=== PATIENT | female | born 1955 | race Caucasian/White ===

== ENCOUNTER → 2017-06-16 | Outpatient (CLI) | payer MEDICARE ==
[~2017-06-16] MED LIST: AGM875T PO; ALPR.25T PO; AZTH250C PO; BUTA-234 PO; CEPH500C PO; CITA10TA70 PO; CITA20TA4 PO; CRS350T PO; FURO40TA4 PO; HYDR-3720 PO; HYDR480S10 GT; NAPR-243 PO; POTA10CA16 PO; ROPI0.5T; SULF1TAB38 PO; TRM50T PO
--- NOTE | 2017-06-17 07:57 | Diagnostic Imaging Report ---
Digital mammogram bilateral screening with tomosynthesis. There are no prior studies available for comparison. There are scattered fibroglandular densities in both breasts which could obscure a lesion. There is no primary or secondary sign of malignancy noted. The tomosynthesis views also fail to show any evidence for malignancy. IMPRESSION: 1. There is no evidence for malignancy. 2. The patient should have her annual bilateral screening mammogram on schedule in June of 2018. ACR BI-RADS Category 1: Negative. Result letter will be mailed to the patient. Note: At least 10% of breast cancer is not imaged by mammography. Dictated by: Dictated on workstation # [id number]
== END ==
LOC: RAD 10:46
PROVIDERS: ATTEND Internal Medicine
DX: Z12.31 Encounter for screening mammogram for malignant neoplasm of breast (principal)
CPT/HCPCS: 77067

== ENCOUNTER 2017-11-28 03:00 | Emergency (ER) | payer MEDICARE ==
[~2017-11-28] VITALS: Ht 162.6 cm; Wt 95.3 kg
[2017-11-28] MEDS ORDERED: LACTATED RINGERS 1,000 ML IV ONE (03:43)
[2017-11-28] MEDS ORDERED: ONDANSETRON 4 MG/2 ML (SDV) Z0FRAN IVP ONE (03:45)
[2017-11-28] MEDS ORDERED: fentaNYL INJECTION 100 MCG/2 ML AMP IVP ONE (03:45)
--- NOTE | 2017-11-28 03:49 | ED GI ---
General Chief Complaint: Abdominal/GI Problems Stated Complaint: ABD PAIN Nursing Triage Note: PT REPORTS MIDLINE ABD PAIN SINCE 1900. SHE ALSO C/O NAUSEA WITHOUT VOMITING. SHE DENIES FEVER. Sepsis Screen: No Definite Risk Source of Information: Patient Exam Limitations: No Limitations History of Present Illness Date Seen by Provider: Nov 28, 2017 Time Seen by Provider: 03:39 Initial Comments Patient presents to ER by private conveyance with chief complaint that less than one day now she's been feeling nauseated after dinner and threw up. She Dry up so she decided to come in. After throwing up she was started having epigastric pain. She's having no diarrhea her last bowel movement was earlier today and normal, formed without straining. She has no history of abdominal problems she has had a hysterectomy in the past. She says her [id number] about a day ago had similar symptoms and she is doing better now. Patient does not have any other medical history, diabetes, cardiac history etc. She does not smoke or drink. She says her pain is a little better right now but she did vomit times one since she's been in the ER and there is no blood in the vomitus. She has no cough, body aches, fevers, chills. Allergies and Home Medications Allergies Coded Allergies: Codeine (Verified Allergy, 11/04/11) Uncoded Allergies: ADHESIVES (Allergy, 10/10/10) Home Medications Amoxicillin/Clavulanate K 1 Tab Tablet, 1 TAB PO BID for 7 Days, Ref 0 Prescribed by: SYLVAIN COBB on 08/08/12 8777 Butalb/Acetaminophen/Caffeine 1 Each Tablet, 1 EACH PO Q4HR PRN, (Reported) Citalopram Hydrobromide 10 Mg Tablet, 4 EACH PO DAILY, (Reported) Hydrocodone Bit/Acetaminophen 1 Ea Tab, 1 TAB PO Q4, Ref 0 (Reported) Review of Systems Constitutional: No chills, No diaphoresis, No fever, No malaise EENTM: No Eye Pain, No Ear Pain Respiratory: Denies Cough, Denies Shortness of Air Cardiovascular: Denies Chest Pain, Denies Edema, Denies Lightheadedness, Denies Palpitations, Denies Syncope Gastrointestinal: See HPI, Denies Abdomen Distended, Abdominal Pain, Denies Constipated, Denies Diarrhea, Denies Difficulty Swallowing, Nausea, Denies Rectal Bleeding, Vomiting Genitourinary: Denies Burning, Denies Discharge Musculoskeletal: No back pain, No joint pain Skin: No pruritus, No rash Past Jsijeot-Ydqthd-Jwushy Hx Patient Social History Alcohol Use: Denies Use Recreational Drug Use: No Smoking Status: Current Everyday Smoker Type Used: Cigarettes 2nd Hand Smoke Exposure: No Recent Foreign Travel: No Contact w/Someone Who Travel: No Recent Infectious Disease Expo: No Recent Hopitalizations: No Seasonal Allergies Seasonal Allergies: No Surgeries History of Surgeries: Yes (R knee, THYROID) Surgeries: Hysterectomy Respiratory Respiratory Disorders: COPD Cardiovascular History of Cardiac Disorders: Yes Cardiac Disorders: High Cholesterol, Hypertension Gastrointestinal History of Gastrointestinal Di: No Musculoskeletal History of Musculoskeletal Dis: Yes Musculoskeletal Disorders: Arthritis HEENT History of HEENT Disorders: No Cancer History of Cancer: No Psychosocial History of Psychiatric Problem: No Blood Transfusions History of Blood Disorders: No Physical Exam Vital Signs VS - Last 72 Hours, by Label 11/28/17 03:10 Temp 96.4 Pulse 77 Resp 20 B/P (MAP) 159/108 (125) Pulse Ox 98 O2 Delivery Room Air Capillary Refill : Less Than 3 Seconds General Appearance: WD/WN, no apparent distress HEENT: PERRL/EOMI, pharynx normal Neck: non-tender, normal inspection Respiratory: chest non-tender, lungs clear, normal breath sounds, no respiratory distress, no accessory muscle use Cardiovascular: normal peripheral pulses, regular rate, rhythm Peripheral Pulses: 2+ Radial Pulses (R), 2+ Radial Pulses (L) Gastrointestinal: normal bowel sounds, soft, no organomegaly, No distended, No guarding, No rebound, tenderness (epigastric), No mass Neurologic/Psychiatric: alert, oriented x 3 Skin: normal color, warm/dry Progress/Results/Core Measures Results/Orders Lab Results Laboratory Tests Test 11/28/17 03:45 Range/Units White Blood Count 13.3 H 4.3-11.0 10^3/uL Red Blood Count 5.03 4.35-5.85 10^6/uL Hemoglobin 16.7 H 11.5-16.0 G/DL Hematocrit 46 35-52 % Mean Corpuscular Volume 92 80-99 FL Mean Corpuscular Hemoglobin 33 25-34 PG Mean Corpuscular Hemoglobin Concent 36 32-36 G/DL Red Cell Distribution Width 11.7 10.0-14.5 % Platelet Count 238 130-400 10^3/uL Mean Platelet Volume 10.0 7.4-10.4 FL Neutrophils (%) (Auto) 83 H 42-75 % Lymphocytes (%) (Auto) 13 12-44 % Monocytes (%) (Auto) 4 0-12 % Eosinophils (%) (Auto) 1 0-10 % Basophils (%) (Auto) 0 0-10 % Neutrophils # (Auto) 11.0 H 1.8-7.8 X 10^3 Lymphocytes # (Auto) 1.7 1.0-4.0 X 10^3 Monocytes # (Auto) 0.5 0.0-1.0 X 10^3 Eosinophils # (Auto) 0.1 0.0-0.3 10^3/uL Basophils # (Auto) 0.0 0.0-0.1 10^3/uL Sodium Level 136 135-145 MMOL/L Potassium Level 4.2 3.6-5.0 MMOL/L Chloride Level 103 98-107 MMOL/L Carbon Dioxide Level 23 21-32 MMOL/L Anion Gap 10 5-14 MMOL/L Blood Urea Nitrogen 11 7-18 MG/DL Creatinine 0.73 0.60-1.30 MG/DL Estimat Glomerular Filtration Rate > 60 BUN/Creatinine Ratio 15 Glucose Level 154 H 70-105 MG/DL Calcium Level 9.4 8.5-10.1 MG/DL Magnesium Level 2.0 1.8-2.4 MG/DL Total Bilirubin 1.0 0.1-1.0 MG/DL Aspartate Amino Transf (AST/SGOT) 15 5-34 U/L Alanine Aminotransferase (ALT/SGPT) 15 0-55 U/L Alkaline Phosphatase 74 40-136 U/L C-Reactive Protein High Sensitivity 0.24 0.00-0.50 MG/DL Total Protein 7.4 6.4-8.2 GM/DL Albumin 4.1 3.2-4.5 GM/DL My Orders Orders - MITCH SEQUEIRA Cbc With Automated Diff (11/28/17 03:43) Comprehensive Metabolic Panel (11/28/17 03:43) Hs C Reactive Protein (11/28/17 03:43) Magnesium (11/28/17 03:43) Saline Lock/Iv-Start (11/28/17 03:43) Lactated Ringers (Lr 1000 Ml Iv Solution (11/28/17 03:43) Fentanyl Injection (Sublimaze Injection (11/28/17 03:45) Ondansetron Injection (Zofran Injectio (11/28/17 03:45) Medications Given in ED Current Medications Medications Dose Ordered Sig/Kaveh Route Start Time Stop Time Status Last Admin Dose Admin Fentanyl Citrate 25 mcg ONCE ONCE IVP 11/28/17 03:45 11/28/17 03:46 DC 11/28/17 03:55 25 MCG Lactated Ringer's 1,000 ml @ 0 mls/hr Q0M ONCE IV 11/28/17 03:43 11/28/17 03:46 DC 11/28/17 03:56 0 MLS/HR Ondansetron HCl 4 mg ONCE ONCE IVP 11/28/17 03:45 11/28/17 03:46 DC 11/28/17 03:55 4 MG Vital Signs/I&O Vital Sign - Last 12Hours 11/28/17 03:10 Temp 96.4 Pulse 77 Resp 20 B/P (MAP) 159/108 (125) Pulse Ox 98 O2 Delivery Room Air Blood Pressure Mean: 125 Progress Note #1: Time: 03:48 Progress Note Patient otherwise looks well and is likely have gastroenteritis that will look for a couple things. She's having no urinary symptoms so UA is not indicated. We 'll give her some pain medicine and nausea medicine if that doesn't control her then we may consider imaging. Progress Note #2: Time: 04:48 Progress Note Patient has a mild increase in her white blood cell count of uncertain significance which could also be related just to her recent nausea and vomiting. She is no longer having any nauseous been given Zofran and a liter fluids she feels much better having no pain. So we are going to give her some nausea medicine and let her go home with return precautions as well as plan to follow up Friday with her doctor if she is not feeling better. Departure Impression Impression: Primary Impression: Gastroenteritis Disposition: 01 HOME, SELF-CARE Condition: Improved Departure-Patient Inst. Decision time for Depature: 04:49 Referrals: JER HENSLEY MD (PCP/Family) Primary Care Physician Patient Instructions: Viral Gastroenteritis, Adult (DC) Add. Discharge Instructions: Expect this to be over in one to 3 days. If it's not follow up with your primary care physician this next Friday. If you start having chest pain, nausea and vomiting that does not respond to the Zofran every 6 hours, fever or chills , worsening abdominal pain or shortness of breath he should return to the ER for further evaluation. Drink plenty of fluids and if you do develop diarrhea let ago for the first 24-48 hours and then you can start taking 2 tablets of Imodium. Every 4 hours afterwards if you have loose watery stools take another tablet of Imodium until it slows down. All discharge instructions reviewed with patient and/or family. Voiced understanding. Scripts Ondansetron (Ondansetron Odt) 4 Mg Tab.rapdis 4 MG PO Q6H Y for NAUSEA/VOMITING, #10 TAB 0 Refills Prov: MITCH SEQUEIRA 11/28/17 Copy Copies To 1: DEEPTHI SHANNON DO MITCH SEQUEIRA Nov 28, 2017 03:49
[2017-11-28 03:55] LABS: BASOPHILS % (AUTO) 0 % (0-10); EOSINOPHILS # (AUTO) 0.1 10^3/uL (0.0-0.3); EOSINOPHILS % (AUTO) 1 % (0-10); HEMATOCRIT 46 % (35-52); HEMOGLOBIN 16.7 G/DL (11.5-16.0); LYMPHOCYTES # (AUTO) 1.7 X 10^3 (1.0-4.0); LYMPHOCYTES % (AUTO) 13 % (12-44); MEAN CORPUSCULAR HEMOGLOBIN 33 PG (25-34); MEAN CORPUSCULAR HGB CONC 36 G/DL (32-36); MEAN CORPUSCULAR VOLUME 92 FL (80-99); MONOCYTES # (AUTO) 0.5 X 10^3 (0.0-1.0); MONOCYTES % (AUTO) 4 % (0-12); NEUTROPHILS % (AUTO) 83 % (42-75); PLATELET COUNT 238 10^3/uL (130-400); RED BLOOD COUNT 5.03 10^6/uL (4.35-5.85); RED CELL DISTRIBUTION WIDTH 11.7 % (10.0-14.5); WHITE BLOOD COUNT 13.3 10^3/uL (4.3-11.0)
[2017-11-28 04:13] LABS: ALANINE AMINOTRANSFERASE 15 U/L (0-55); ALBUMIN 4.1 GM/DL (3.2-4.5); ALKALINE PHOSPHATASE 74 U/L (40-136); BUN/CREATININE RATIO 15; CALCIUM 9.4 MG/DL (8.5-10.1); CARBON DIOXIDE 23 MMOL/L (21-32); CHLORIDE 103 MMOL/L (98-107); CREATININE SERUM 0.73 MG/DL (0.60-1.30); GFR ESTIMATED > 60; GLUCOSE 154 MG/DL (70-105); POTASSIUM 4.2 MMOL/L (3.6-5.0); SODIUM 136 MMOL/L (135-145); TOTAL PROTEIN 7.4 GM/DL (6.4-8.2)
[2017-11-28] MEDS ORDERED: ONDA4TAB11 PO (04:52)
[2017-11-28 04:58] VITALS: BP 145/84
--- OUTSIDE RECORDS SUMMARY | 2017-11-30 06:11 | XMS REPORT ---
Author Author SMITHA WARREN Organization [facility] Address [address] [place] [address] Care Team Providers Care Apartment House Manager Name Role Phone SMITHA WARREN Unavailable PROBLEMS Type Condition ICD9-CM Code NGS57-[id number] Code Onset Dates Condition Status SNOMED Code Problem Visit for screening mammogram Z12.31 Active 179627099 Problem Arthritis M19.90 Active 2094752 Problem Hyperlipidemia E78.5 Active 47219913 Problem Other chronic pain G89.29 Active 23915009 Problem Low back pain M54.5 Active 384902621 Problem Tear meniscus knee, right, initial encounter S83.206A Active 460745985 Problem Depression F32.9 Active 62553799 Problem Stress incontinence N39.3 Active 23637217 Problem Insomnia, unspecified type G47.00 Active 376193922 ALLERGIES No Information SOCIAL HISTORY Never Assessed PLAN OF CARE VITAL SIGNS MEDICATIONS Medication Instructions Dosage Frequency Start Date End Date Duration Status Hydrocodone-Acetaminophen 10-325 MG Orally every 6 hrs 1 tablet as needed 6h March, 28 Active RESULTS No Results PROCEDURES No Known procedures IMMUNIZATIONS No Known Immunizations MEDICAL (GENERAL) HISTORY Type Description Date Medical History Arthritis Medical History headache Medical History depression Surgical History hysterectomy 2001 Surgical History thyroidectomy Surgical History rt. knee arthroscopy 04/2016 Hospitalization History Hospitalization for surgery only
--- OUTSIDE RECORDS SUMMARY | 2017-11-30 06:12 | XMS REPORT | Continuity of Care Document ---
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 14:30:00 Document Registration [id number] 08/20/2011 11:06:00 Document Registration [id number] 04/27/2011 21:14:00 Document Registration [id number] 10/10/2010 20:09:00 Document Registration
== END 2017-11-28 04:59 | disposition home or self-care (01) ==
LOC: EDUNIT# 03:00 → ER 03:03
DX: K52.9 Noninfective gastroenteritis and colitis, unspecified (principal); J44.9 Chronic obstructive pulmonary disease, unspecified; E78.00 Pure hypercholesterolemia, unspecified; I10 Essential (primary) hypertension; F17.210 Nicotine dependence, cigarettes, uncomplicated; Z90.710 Acquired absence of both cervix and uterus
CPT/HCPCS: 36415; 80053; 83735; 85025; 86141

== ENCOUNTER 2018-08-08 00:09 | Emergency (ER) | payer MEDICARE, MEDICAID ==
[~2018-08-08] VITALS: Ht 165.1 cm; Wt 107.0 kg
[~2018-08-08 00:09] MED LIST changes: +ONDA4TAB11 PO
--- NOTE | 2018-08-08 01:06 | ED Abdominal Pain ---
General Chief Complaint: Abdominal/GI Problems Stated Complaint: ABD PAIN,VOMITING Nursing Triage Note: ABDOMINAL CRAMPING. Sepsis Screen: No Definite Risk Source of Information: Patient Exam Limitations: No Limitations History of Present Illness Date Seen by Provider: Aug 08, 2018 Time Seen by Provider: 01:06 Initial Comments The patient presents to the ER by private conveyance with chief complaint that today she's been having some nausea vomiting or loose stools. This is progressively been going on for the past 2 days. Her last stool today was soft non-diarrhea non-watery nonbloody. She's not having bilious vomiting. Just lots of nausea. She has recently had some sick contacts with colds at work and home. She is not had any fevers or chills. No trauma or surgeries to her abdomen. Last week she had her gallbladder worked up for similar symptoms and the ultrasound was negative. She's not had a HIDA scan and she has scheduled a colonoscopy and EGD in the next 1-2 weeks. Allergies and Home Medications Allergies Coded Allergies: Codeine (Verified Allergy, 11/04/11) Uncoded Allergies: ADHESIVES (Allergy, 10/10/10) Home Medications Amoxicillin/Clavulanate K 1 Tab Tablet, 1 TAB PO BID Prescribed by: SYLVAIN COBB on 08/08/12 1717 Butalb/Acetaminophen/Caffeine 1 Each Tablet, 1 EACH PO Q4HR PRN, (Reported) Citalopram Hydrobromide 10 Mg Tablet, 4 EACH PO DAILY, (Reported) Hydrocodone Bit/Acetaminophen 1 Ea Tab, 1 TAB PO Q4, (Reported) Ondansetron 4 Mg Tab.rapdis, 4 MG PO Q6H PRN for NAUSEA/VOMITING Prescribed by: MITCH SEQUEIRA on 11/28/17 0452 Patient Home Medication List Home Medication List Reviewed: Yes Review of Systems Review of Systems Constitutional: No chills, No diaphoresis EENTM: No Blurred Vision, No Double Vision Respiratory: Denies Cough, Denies Shortness of Air Cardiovascular: Denies Chest Pain, Denies Edema Gastrointestinal: Denies Abdomen Distended; Abdominal Pain; Denies Blood Streaked Stools, Denies Constipated; Diarrhea, Nausea, Poor Fluid Intake, Vomiting Genitourinary: Denies Burning, Denies Discharge Musculoskeletal: No back pain, No gout, No joint pain Skin: No change in color, No pruritus, No rash Past Rpmqeyt-Wkrvpk-Ynwuou Hx Patient Social History Alcohol Use: Rarely Uses Recreational Drug Use: No Smoking Status: Current Everyday Smoker Type Used: Cigarettes 2nd Hand Smoke Exposure: No Recent Foreign Travel: No Contact w/Someone Who Travel: No Recent Infectious Disease Expo: No Recent Hopitalizations: No Immunizations Up To Date Tetanus Booster (TDap): Unknown Seasonal Allergies Seasonal Allergies: No Past Medical History Surgeries: Yes (R knee,THROAT) Hysterectomy Respiratory: Yes COPD Cardiac: Yes High Cholesterol, Hypertension Neurological: No : 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 oz. 107.401442eu; 42.22 BMI Method:Stated General Appearance: WD/WN, no apparent distress HEENT: PERRL/EOMI, normal ENT inspection; No pharynx normal (oropharynx is dry) Neck: non-tender, full range of motion, normal inspection Respiratory: chest non-tender, lungs clear, normal breath sounds, no respiratory distress, no accessory muscle use Cardiovascular: normal peripheral pulses, regular rate, rhythm, no edema Peripheral Pulses: 2+ Radial Pulses (R), 2+ Radial Pulses (L) Gastrointestinal: normal bowel sounds, non tender, soft, no organomegaly Extremities: normal range of motion, non-tender, normal inspection, no pedal edema, no calf tenderness, normal capillary refill Back: normal inspection, no CVA tenderness Neurologic/Psychiatric: alert, normal mood/affect, oriented x 3 Skin: normal color, warm/dry Progress/Results/Core Measures Results/Orders Lab Results Laboratory Tests Test 08/08/18 01:13 08/08/18 01:37 Range/Units Urine Color YELLOW Urine Clarity CLEAR Urine pH 6.5 5-9 Urine Specific [place] 1.015 L 1.016-1.022 Urine Protein NEGATIVE NEGATIVE Urine Glucose (UA) NEGATIVE NEGATIVE Urine Ketones NEGATIVE NEGATIVE Urine Nitrite NEGATIVE NEGATIVE Urine Bilirubin NEGATIVE NEGATIVE Urine Urobilinogen 1 NORMAL MG/DL Urine Leukocyte Esterase 1+ H NEGATIVE Urine RBC (Auto) 1+ H NEGATIVE Urine RBC NONE /HPF Urine WBC 2-5 /HPF Urine Squamous Epithelial Cells 5-10 /HPF Urine Crystals NONE /LPF Urine Bacteria LARGE H /HPF Urine Casts NONE /LPF Urine Mucus NEGATIVE /LPF Urine Culture Indicated YES White Blood Count 11.0 4.3-11.0 10^3/uL Red Blood Count 4.76 4.35-5.85 10^6/uL Hemoglobin 16.1 H 11.5-16.0 G/DL Hematocrit 45 35-52 % Mean Corpuscular Volume 94 80-99 FL Mean Corpuscular Hemoglobin 34 25-34 PG Mean Corpuscular Hemoglobin Concent 36 32-36 G/DL Red Cell Distribution Width 12.0 10.0-14.5 % Platelet Count 216 130-400 10^3/uL Mean Platelet Volume 10.1 7.4-10.4 FL Neutrophils (%) (Auto) 77 H 42-75 % Lymphocytes (%) (Auto) 16 12-44 % Monocytes (%) (Auto) 5 0-12 % Eosinophils (%) (Auto) 1 0-10 % Basophils (%) (Auto) 0 0-10 % Neutrophils # (Auto) 8.5 H 1.8-7.8 X 10^3 Lymphocytes # (Auto) 1.8 1.0-4.0 X 10^3 Monocytes # (Auto) 0.6 0.0-1.0 X 10^3 Eosinophils # (Auto) 0.1 0.0-0.3 10^3/uL Basophils # (Auto) 0.0 0.0-0.1 10^3/uL Sodium Level 138 135-145 MMOL/L Potassium Level 4.1 3.6-5.0 MMOL/L Chloride Level 101 98-107 MMOL/L Carbon Dioxide Level 25 21-32 MMOL/L Anion Gap 12 5-14 MMOL/L Blood Urea Nitrogen 10 7-18 MG/DL Creatinine 0.82 0.60-1.30 MG/DL Estimat Glomerular Filtration Rate > 60 BUN/Creatinine Ratio 12 Glucose Level 135 H 70-105 MG/DL Calcium Level 10.0 8.5-10.1 MG/DL Corrected Calcium 9.8 8.5-10.1 MG/DL Magnesium Level 2.2 1.8-2.4 MG/DL Total Bilirubin 0.7 0.1-1.0 MG/DL Aspartate Amino Transf (AST/SGOT) 15 5-34 U/L Alanine Aminotransferase (ALT/SGPT) 19 0-55 U/L Alkaline Phosphatase 72 40-136 U/L Total Protein 7.4 6.4-8.2 GM/DL Albumin 4.2 3.2-4.5 GM/DL Lipase 15 8-78 U/L My Orders Orders - MITCH SEQUEIRA Cbc With Automated Diff (08/08/18) Comprehensive Metabolic Panel (08/08/18) Lipase (08/08/18:28) Magnesium (08/08/1828) Ua Culture If Indicated (08/08/18) Abdomen/Kub 1view (08/08/18:28) Saline Lock/Iv-Start (08/08/18:28) Ns Iv 1000 Ml (Sodium Chloride 0.9%) (08/08/18:28) Ondansetron Injection (Zofran Injectio (08/08/18 01:30) Lidocaine 2% Viscous 15 Ml (Xylocaine Vi (08/08/18 01:30) Famotidine Tablet (Pepcid Tablet) (08/08/18:28) Antacid Suspension (Mylanta Suspension (08/08/18 01:30) Urine Culture (08/08/18 01:13) Ondansetron Injection (Zofran Injectio (08/08/18 02:30) Ketorolac Injection (Toradol Injection) (08/08/18 02:45) Medications Given in ED Current Medications Medications Dose Ordered Sig/Kaveh Route Start Time Stop Time Status Last Admin Dose Admin Al Hydrox/Mg Hydrox/Simethicone 30 ml ONCE ONCE PO 08/08/18 01:30 08/08/18:31 DC 08/08/18 01:42 30 ML Lidocaine HCl 15 ml ONCE ONCE PO 08/08/18 01:30 08/08/18:31 DC 08/08/18 01:42 15 ML Ondansetron HCl 4 mg ONCE ONCE IVP 08/08/18 01:30 08/08/18:31 DC 08/08/18 01:42 4 MG Ondansetron HCl 8 mg ONCE ONCE IVP 08/08/18 02:30 08/08/18 02:31 DC 08/08/18 02:31 8 MG Vital Signs/I&O 08/08/18 00:30 Temp 97.0 Pulse 89 Resp 20 B/P (MAP) 164/105 (124) Pulse Ox 95 O2 Delivery Room Air Blood Pressure Mean: 124 Progress Progress Note #1: Time: 02:15 Progress Note Epigastric pain nausea vomiting diarrhea and reports that recently multiple members or household have had colds as well as people at her work. She sounds like it's gastroenteritis viral source most likely however we'll also think about diverticulosis, bowel obstruction, PUD, pancreatitis. We'll start her some basic medicines GI cocktail see if we can't control her symptoms. We'll get a flat plate x-ray of her abdomen. If these are unrevealing and her pain persists or her labs are worrisome we would progress to a CT scan of the abdomen and pelvis. Progress Note #2: Time: 02:37 Progress Note The patient says her pain is feeling much better although it's not resolved. She would like something else for pain. We've discussed going home and treating conservatively for viral gastroenteritis and she is in agreement with this. We' ll set her up with some Zofran to go as well as some at [facility]. Diagnostic Imaging Diagonstic Imaging: Xray (1v) Plain Films/CT/US/NM/MRI: abdomen (KUB) Comments Nonspecific bowel gas pattern. No pneumoperitoneum. Reviewed: Reviewed by Me Departure Impression Primary Impression: Gastroenteritis and colitis, viral Disposition: 01 HOME, SELF-CARE Condition: Improved Departure-Patient Inst. Decision time for Depature: 02:39 Referrals: JER HENSLEY MD (PCP/Family) Primary Care Physician Patient Instructions: Viral Gastroenteritis, Adult (DC) Add. Discharge Instructions: Start on a clear liquid diet and use the Zofran every 6 hours as needed for nausea. If you're still having are loose stools you can use 2 tablets of Imodium followed by one tablet every 4 hours afterwards if you still have a watery diarrhea. Soft stools are okay. As you're able to tolerate liquid intake then you can advance to a BRAT diet consisting of bananas, rice, applesauce, toast and other similar bland high-fiber foods. If it's persisting for more than 3-5 days and he can follow-up with her primary care doctor. If you're unable to control the nausea vomiting or abdominal pain is getting worse then you can return to the ER for reevaluation. All discharge instructions reviewed with patient and/or family. Voiced understanding. MITCH SEQUEIRA Aug 08, 2018 01:06
[2018-08-08] MEDS ORDERED: NS IV 1000 ML 1,000 ML IV SCH (01:28)
[2018-08-08] MEDS ORDERED: FAMOTIDINE 20 MG (PEPCID) TABLET PO STA (01:28)
[2018-08-08] MEDS ORDERED: ANTACID SUSP 30 ML UDC (MYLANTA) PO ONE (01:30)
[2018-08-08] MEDS ORDERED: LIDOCAINE 2% VISCOUS 15 ML UDC PO ONE (01:30)
[2018-08-08] MEDS ORDERED: ONDANSETRON 4 MG/2 ML (SDV) Z0FRAN IVP ONE ×2 (01:30→02:30)
[2018-08-08 01:35] LABS: BILIRUBIN,URINE NEGATIVE (NEGATIVE); CLARITY,URINE CLEAR; COLOR,URINE YELLOW; GLUCOSE, URINE (UA) NEGATIVE (NEGATIVE); KETONES,URINE NEGATIVE (NEGATIVE); LEUKOCYTE ESTERASE ,URINE 1+ (NEGATIVE); NITRITE,URINE NEGATIVE (NEGATIVE); PH,URINE 6.5 (5-9); PROTEIN,URINE NEGATIVE (NEGATIVE); UROBILINOGEN,URINE 1 MG/DL (NORMAL)
[2018-08-08 01:45] LABS: BACTERIA,URINE LARGE /HPF
[2018-08-08 01:49] LABS: BASOPHILS % (AUTO) 0 % (0-10); EOSINOPHILS # (AUTO) 0.1 10^3/uL (0.0-0.3); EOSINOPHILS % (AUTO) 1 % (0-10); HEMATOCRIT 45 % (35-52); HEMOGLOBIN 16.1 G/DL (11.5-16.0); LYMPHOCYTES # (AUTO) 1.8 X 10^3 (1.0-4.0); LYMPHOCYTES % (AUTO) 16 % (12-44); MEAN CORPUSCULAR HEMOGLOBIN 34 PG (25-34); MEAN CORPUSCULAR HGB CONC 36 G/DL (32-36); MEAN CORPUSCULAR VOLUME 94 FL (80-99); MEAN PLATELET VOLUME 10.1 FL (7.4-10.4); MONOCYTES # (AUTO) 0.6 X 10^3 (0.0-1.0); MONOCYTES % (AUTO) 5 % (0-12); NEUTROPHILS # (AUTO) 8.5 X 10^3 (1.8-7.8); NEUTROPHILS % (AUTO) 77 % (42-75); PLATELET COUNT 216 10^3/uL (130-400); RED BLOOD COUNT 4.76 10^6/uL (4.35-5.85)
[2018-08-08 02:20] LABS: BUN/CREATININE RATIO 12; CARBON DIOXIDE 25 MMOL/L (21-32); CHLORIDE 101 MMOL/L (98-107); CREATININE SERUM 0.82 MG/DL (0.60-1.30); POTASSIUM 4.1 MMOL/L (3.6-5.0); SODIUM 138 MMOL/L (135-145)
[2018-08-08 02:21] LABS: ALANINE AMINOTRANSFERASE 19 U/L (0-55); ALBUMIN 4.2 GM/DL (3.2-4.5); ALKALINE PHOSPHATASE 72 U/L (40-136); BILIRUBIN,TOTAL 0.7 MG/DL (0.1-1.0); GFR ESTIMATED > 60; GLUCOSE 135 MG/DL (70-105); LIPASE 15 U/L (8-78); MAGNESIUM 2.2 MG/DL (1.8-2.4); TOTAL PROTEIN 7.4 GM/DL (6.4-8.2)
[2018-08-08] MEDS ORDERED: RX-ONDANSETRON 4 MG ODT (ZOFRAN) PPK #4 PO STA (02:35)
[2018-08-08] MEDS ORDERED: ONDA4TAB11 PO (02:42)
[2018-08-08] MEDS ORDERED: KETOROLAC 30 MG/ML VIAL IVP ONE (02:45)
[2018-08-08 02:49] VITALS: BP 165/103
--- NOTE | 2018-08-08 06:48 | Diagnostic Imaging Report ---
INDICATION: Abdominal pain COMPARISON: None. FINDINGS: 2 views of the abdomen demonstrate nondistended bowel gas pattern. There is no significant constipation. No free air seen. Osseous structures normal. IMPRESSION: Negative KUB. Dictated by: Dictated on workstation # [id number]
== END 2018-08-08 02:50 | disposition home or self-care (01) ==
LOC: EDUNIT# 00:09 → ER 00:11
DX: A08.4 Viral intestinal infection, unspecified (principal); J44.9 Chronic obstructive pulmonary disease, unspecified; E78.00 Pure hypercholesterolemia, unspecified; I10 Essential (primary) hypertension; F17.210 Nicotine dependence, cigarettes, uncomplicated; Z88.5 Allergy status to narcotic agent; Z91.048 Other nonmedicinal substance allergy status; Z90.710 Acquired absence of both cervix and uterus
CPT/HCPCS: 36415; 74018; 80053; 81000; 83690; 83735; 85025; 87088

== ENCOUNTER 2018-08-24 09:30 | Outpatient (CLI) | payer MEDICARE, MEDICAID ==
[~2018-08-24] VITALS: Ht 165.1 cm; Wt 107.0 kg
[~2018-08-24 09:30] MED LIST changes: +ATOR40TA70 PO; +CELE-63 PO; +CHOL500049 PO; +CYCL10TA9 PO; +ESTR0.5T PO; +HYDR-3820 PO
[2018-08-25] MEDS ORDERED: PANT40TA2 PO (15:05)
[2018-08-25] MEDS ORDERED: SUCR1TAB36 PO (15:05)
== END 2018-08-24 09:50 | disposition home or self-care (01) ==
LOC: PREOP 09:30
PROVIDERS: ATTEND Surgery
DX: Z01.818 Encounter for other preprocedural examination (principal)

== ENCOUNTER 2018-08-25 12:48 | Day surgery (SDC) | payer MEDICARE, MEDICAID ==
[~2018-08-25] VITALS: Ht 165.1 cm; Wt 107.0 kg
[2018-08-25] MEDS ORDERED: LACTATED RINGERS 1,000 ML IV ONE (12:53)
[2018-08-25] MEDS ORDERED: LACTATED RINGERS 1,000 ML IV STA (12:59)
[2018-08-25] MEDS ORDERED: HURRICAINE EXT TUBE (BENZOCAINE) XX PRN (13:00)
[2018-08-25 13:05] VITALS: BP 126/84
--- NOTE | 2018-08-25 13:16 | Progress Note-Pre Operative ---
Pre-Operative Progress Note H&P Reviewed The H&P was reviewed, patient examined and no changes noted. Date Seen by Provider: Aug 25, 2018 Time Seen by Provider: 13:15 Date H&P Reviewed: Aug 25, 2018 Time H&P Reviewed: 13:15 Pre-Operative Diagnosis: screening colonoscopy , gerd CARY VICTORIA DO Aug 25, 2018 13:16
[2018-08-25] MEDS ORDERED: MIDAZOLAM 2 MG/2 ML (VERSED) VIAL ONE (13:48)
[2018-08-25] MEDS ORDERED: proPOfol 200 MG/20 ML (DIPRIVAN) VIAL IV ONE ×2 (13:48→14:33)
--- NOTE | 2018-08-25 15:04 | Progress Note-Post Operative ---
Post-Operative Progess Note Surgeon (s)/Long Line Teamster (s) Surgeon CARY VICTORIA DO Long Line Teamster: na Pre-Operative Diagnosis screening colonoscopy , gerd Post-Operative Diagnosis gastritis, antral ulcerations, relfux esophagitis, small hiatal hernia Procedure & Operative Findings Date of Procedure 08/25/18 Procedure Performed/Findings egd c biopsies colonoscopy with hot bx polypectomy x 3 and snare polypectomy x 3 Anesthesia Type per asset management lead Estimated Blood Loss Estimated blood loss (mL): none Specimens/Packing Specimens Removed antral, ge, colon polyps CARY VICTORIA DO Aug 25, 2018 15:04
[2018-08-25] MEDS ORDERED: SUCR1TAB36 PO (15:05)
[2018-08-25] MEDS ORDERED: PANT40TA2 PO (15:05)
--- NOTE | 2018-08-25 15:06 | Discharge Inst-Simple/Standard ---
Discharge Inst-Standard Discharge Medications New, Converted or Re-Newed RX: Transmitted to Pharmacy Patient Instructions/Follow Up Plan of Care/Instructions/FU: 2-3 weeks Ria Activity as Tolerated: Yes Discharge Diet: Regular Diet CARY VICTORIA DO Aug 25, 2018 15:06
[2018-08-25 15:10] VITALS: BP 116/72
[2018-08-25] MEDS ORDERED: HURRICAINE EXT TUBE (BENZOCAINE) ONE (15:13)
--- NOTE | 2018-08-25 15:38 | OPERATIVE REPORT ---
DATE OF SERVICE: 08/25/2018 PREOPERATIVE DIAGNOSES: Screening colonoscopy, gastroesophageal reflux disease. POSTOPERATIVE DIAGNOSES: Gastritis, antral ulcerations, reflux esophagitis, small hiatal hernia, colon polyps. PROCEDURES: EGD with biopsies, colonoscopy with hot biopsy polypectomy x3 and snare polypectomy x3. SURGEON: Cary Rollins DO. ANESTHESIA: Per FIELD SERVICER. ESTIMATED BLOOD LOSS: None. COMPLICATIONS: None. INDICATIONS: The patient is a 62-year-old female who is having some epigastric abdominal pain and reflux. She needs screening colonoscopy. She understands risks and benefits of procedure and wished to proceed with procedure. Consent was signed on the chart. DESCRIPTION OF PROCEDURE: The patient was taken to the endoscopy suite, placed in left lower recumbent position. Timeout was performed. Scope was inserted in mouth, down the esophagus, stomach and into the duodenum without difficulty. There were no polyps, masses or ulcerations in the duodenum. Scope was slowly retracted back to the stomach where it was further insufflated. Some slight antral ulcerations present. There were pretty significant erythematous changes. Biopsies were obtained. Scope was retroflexed noting a small hiatal hernia, no other pathology. Scope was returned to its normal position, slowly withdrawn to the distal esophagus. At the GE junction, there were two areas of significant erythematous changes. Biopsy was obtained. Scope was then slowly retracted back and slowly retracted until completely removed, noting no other pathology. Digital rectal exam was performed. There were no palpable polyps, masses or ulcerations. Scope was inserted in the rectum and advanced all the way to the cecum with minimal difficulty. Prep was adequate with irrigation and suction. Scope was then slowly retracted back. There were no polyps, masses or ulcerations in the cecum. In the ascending colon, there were two polyps, which hot biopsy polypectomy was performed. Scope was continued to be slowly retracted back. In the proximal portion of the transverse colon, a larger polyp was present, which snare polypectomy was performed. obtained for specimen. Scope was continuously retracted back. There were no polyps, masses or ulcerations in the descending colon. In the sigmoid colon, there were two small polyps on the proximal portion, which these two polyps had snare polypectomy performed. Scope was continued to be slowly retracted back and in the distal portion of sigmoid colon, another small polyp was present, which hot biopsy polypectomy was performed. Once in the rectum, scope was retroflexed noting some hemorrhoidal disease. The scope was returned. No other pathology noted. Scope was returned to its normal position, slowly withdrawn until completely removed. The patient tolerated the procedure well without any complications. She was taken to recovery room in stable condition. RECOMMENDATIONS: The patient will be started on Protonix and Carafate. We will see how this does for two or three weeks and await biopsies to see how she is doing. We would recommend repeat colonoscopy and EGD in three to six months to reevaluate. Job ID: [id number] DocumentID: [id number] Dictated Date: 08/25/2018 15:10:20 Emergency Management Consultant Date: 08/25/2018 15:32:41 Dictated By: CARY ROLLINS DO
[2018-08-25 15:40] VITALS: BP 116/72
[2018-08-25 15:46] VITALS: BP 116/72
== END 2018-08-25 15:45 | disposition home or self-care (01) ==
LOC: ENDO 12:48
PROVIDERS: ATTEND Surgery
DX: Z12.11 Encounter for screening for malignant neoplasm of colon (principal); D12.2 Benign neoplasm of ascending colon; D12.3 Benign neoplasm of transverse colon; D12.5 Benign neoplasm of sigmoid colon; K63.5 Polyp of colon; K22.70 Barrett's esophagus without dysplasia; K29.70 Gastritis, unspecified, without bleeding; K25.9 Gastric ulcer, unspecified as acute or chronic, without hemorrhage or perforation; K21.0 Gastro-esophageal reflux disease with esophagitis; K44.9 Diaphragmatic hernia without obstruction or gangrene; I10 Essential (primary) hypertension; F17.210 Nicotine dependence, cigarettes, uncomplicated; E66.01 Morbid (severe) obesity due to excess calories; Z68.39 Body mass index [BMI] 39.0-39.9, adult; Z79.899 Other long term (current) drug therapy

== ENCOUNTER 2018-11-22 17:32 | Emergency (ER) | payer MEDICARE, MEDICAID | END 2018-11-22 19:19 | disposition home or self-care (01) | LOC: ER 17:32 ==

== ENCOUNTER 2018-11-25 13:03 | Outpatient (CLI) | payer MEDICARE, MEDICAID ==
[~2018-11-25] VITALS: Ht 165.1 cm; Wt 108.0 kg
[~2018-11-25 13:03] MED LIST changes: +ACHD5005 PO; +DULO60CA6 PO; +ONDN4T PO; +PANT40TA2 PO; +SUCR1TAB36 PO
[2018-11-26] MEDS ORDERED: HYDR-3820 PO ×2 (08:43)
== END 2018-11-25 13:13 | disposition home or self-care (01) ==
LOC: PREOP 13:03
PROVIDERS: ATTEND Surgery
DX: Z01.818 Encounter for other preprocedural examination (principal)

== ENCOUNTER 2018-11-26 08:24 | Day surgery (SDC) | payer MEDICAID, MEDICARE ==
[~2018-11-26] VITALS: Ht 165.1 cm; Wt 108.0 kg
--- NOTE | 2018-11-26 08:41 | Progress Note-Pre Operative ---
Pre-Operative Progress Note H&P Reviewed The H&P was reviewed, patient examined and no changes noted. Date Seen by Provider: Nov 26, 2018 Time Seen by Provider: 08:35 Date H&P Reviewed: Nov 26, 2018 Time H&P Reviewed: 08:40 Pre-Operative Diagnosis: Symptomatic Right inguinal hernia TAI GONSALES APRN Nov 26, 2018 08:41
[2018-11-26] MEDS ORDERED: HYDR-3820 PO ×2 (08:43)
--- NOTE | 2018-11-26 08:44 | Discharge Inst-Surgical ---
D/C Lap Instructions-KIDO New, Converted, or Re-Newed RX: RX on Chart Follow Up Appt in 2 weeks Activity as tolerated No driving for 24 hours No driving while on pain medications Incentive Spirometry use every 2 hours while awake Regular Diet Symptoms to Report: Fever over 101 degree F, Nausea/Vomiting Infection Signs and Symptoms to report: Increased redness, Foul odor of wound, Increased drainage Bathing instructions: May shower Operative Area Clean/Dry; Keep incision clean/dry If any problems/questions: Contact your physician or go to Emergency Room TAI GONSALES APRN Nov 26, 2018 08:44
[2018-11-26 08:45] VITALS: BP 121/56
[2018-11-26] MEDS ORDERED: HYDROcodone/APAP 5 MG/325 MG (LORTAB) TAB PO ONE (08:45)
[2018-11-26] MEDS ORDERED: ONDANSETRON 4 MG/2 ML (SDV) Z0FRAN IVP PRN ×2 (08:45→11:00)
[2018-11-26] MEDS ORDERED: ceFAZolin 2 GM IV Premixed 50 ML IV ONE (08:45)
[2018-11-26] MEDS ORDERED: morphine INJ 10 MG/ML 1ML (SYR OR VIAL) IVP PRN (08:45)
[2018-11-26] MEDS ORDERED: ACETAMINOPHEN 325 MG TABLET PO PRN (08:45)
[2018-11-26] MEDS: LACTATED RINGERS 1,000 ML IV PRN ×2 (08:50→10:39)
[2018-11-26] MEDS ORDERED: LIDOCAINE PF 2% 5 ML (XYLOCAINE) VIAL ONE (09:04)
[2018-11-26] MEDS ORDERED: ROCURONIUM 10 MG/ML 5 ML SYRINGE IV ONE (09:04)
[2018-11-26] MEDS ORDERED: proPOfol 200 MG/20 ML (DIPRIVAN) VIAL IV ONE (09:04)
[2018-11-26] MEDS ORDERED: SEVOFLURANE (ULTANE) 15 ML INHAL SOLN ONE ×4 (09:04→10:45)
[2018-11-26] MEDS ORDERED: fentaNYL INJECTION 100 MCG/2 ML AMP ONE (09:05)
[2018-11-26] MEDS ORDERED: MIDAZOLAM 2 MG/2 ML (VERSED) VIAL ONE (09:05)
[2018-11-26] MEDS ORDERED: BUP/EPI 0.5% 1:200,000 (SENSORCAINE) 30 ML VIAL ONE (09:10)
[2018-11-26] MEDS ORDERED: CATHETER FLUSH 10 ML SYR IV PRN (09:45)
[2018-11-26] MEDS ORDERED: ONDANSETRON 4 MG/2 ML (SDV) Z0FRAN ONE (09:51)
[2018-11-26] MEDS ORDERED: DEXAMETHASONE 10 MG/ML (DECADRON) 1 ML VIAL ONE (09:55)
[2018-11-26] MEDS ORDERED: NEOSTIGMINE 1 MG/ML 5 ML SYRINGE ONE (10:27)
[2018-11-26] MEDS ORDERED: GLYCOPYRROLATE 0.2 MG/ML (ROBINUL) 2 ML VIAL ONE (10:27)
--- NOTE | 2018-11-26 10:48 | Progress Note-Post Operative ---
Post-Operative Progess Note Surgeon (s)/Gi Asst (s) Surgeon MONTSERRAT STAFFORD MD Gi Asst: dimitrios brennan PROFESSOR OF RADIOLOGY Pre-Operative Diagnosis Symptomatic Right inguinal hernia Post-Operative Diagnosis indirect inguinal hernia Procedure & Operative Findings Date of Procedure 11/26/18 Procedure Performed/Findings laparoscopic right reducible inguinal hernia repair with mesh. Anesthesia Type GET Estimated Blood Loss Estimated blood loss (mL): minimal Specimens/Packing Specimens Removed none MONTSERRAT STAFFORD MD Nov 26, 2018 10:48
[2018-11-26] MEDS ORDERED: morphine INJ 10 MG/ML 1ML (SYR OR VIAL) IVP ONE (11:00)
[2018-11-26] MEDS ORDERED: MEPERIDINE (DEMEROL) INJ 50 MG/ML IVP ONE (11:00)
[2018-11-26 11:55] VITALS: BP 119/61
--- NOTE | 2018-11-26 11:55 | NUR ---
pt returns on o2 at 2l/nc. sao2 dips to 88-89% on room air. pt does not appear to be SOB. will cont to monitor.
[2018-11-26] MEDS ORDERED: RT-ALBUTEROL SULF 2.5 MG/3 ML PRE-MIX VIAL ONE (12:07)
--- NOTE | 2018-11-26 12:10 | NUR ---
sao2 cont to drop to upper 80s without o2. upon auscultation, wheezes througout. anesthesia notified. orders rec'd.
[2018-11-26] MEDS ORDERED: HYDROcodone/APAP 5 MG/325 MG (LORTAB) TAB ONE (12:13)
[2018-11-26] MEDS ORDERED: RT-ALBUTEROL SULF 2.5 MG/3 ML PRE-MIX VIAL INH ONE (12:15)
[2018-11-26 12:25] VITALS: BP 121/66
--- NOTE | 2018-11-26 12:25 | NUR ---
wheezes decreased upon auscultation of lung knutson, more air movement. sao2 cont to drop to upper 80s without o2. anesthesia notified. patient using IS as directed.
--- NOTE | 2018-11-26 12:50 | NUR ---
pt up to bathroom. no sx/sx distress. anesthesia notified that sao2 remains 87-92% on room air. dr crenshaw notified. no new orders. ok to dc pt, as this is believed to be baseline with hx of smoking. encouraged pt to follow up with pcp concerning underlying respiratory issues. pt agrees. family et pt educated on sx/sx of resp distress.
[2018-11-26 12:55] VITALS: BP 119/71
[2018-11-26 13:25] VITALS: BP 119/71
--- NOTE | 2018-11-26 13:46 | OPERATIVE REPORT ---
DATE OF SERVICE: 11/26/2018 ATTENDING PRIMARY CARE PHYSICIAN: Dr. Nguyen. PREOPERATIVE DIAGNOSIS: Symptomatic reducible right inguinal hernia. POSTOPERATIVE DIAGNOSIS: Symptomatic reducible right indirect inguinal hernia. PROCEDURE PERFORMED: Laparoscopic right inguinal hernia repair with mesh. SURGEON: Montserrat Stafford MD. CLINICAL APPEALS REVIEWER: Mati Banuelos APRN. ANESTHESIA: General endotracheal. ESTIMATED BLOOD LOSS: Minimal. FINDINGS: Reducible indirect right inguinal hernia with nothing within the hernia sac. No left inguinal hernia component. DISPOSITION: The patient tolerated the procedure well. INDICATIONS: The patient is a 63-year-old female who states that she noticed a lump in the right inguinal region approximately a year ago. She reports that one week ago, she was doing an activity and felt a significant amount of pain and a palpable bulge in the right inguinal region and went to the emergency room where a CT scan was performed, which did show an incarcerated hernia at that time; however, was reduced. Upon examination in the office, she was found to have a reducible right inguinal hernia. However, this was tender to palpation. She is otherwise eating well, having normal bowel movements. DESCRIPTION OF PROCEDURE: The patient was brought to the operating room, laid supine on the table. After adequate IV pain and sedating medications and general endotracheal intubation, the abdomen was prepped and draped in standard surgical fashion. A 0.5% Marcaine with epinephrine was then used to anesthetize the overlying skin in the infraumbilical rim and a transverse skin incision made using 15-blade. The abdominal wall was then retracted anteriorly using a sharp towel clamp and a Veress needle inserted with a low opening pressure of 0 mmHg and the abdomen was insufflated to 15 mmHg pressure. The Veress needle removed and a 10 mm x Xcel trocar placed followed by a 10 mm 45-degree angle laparoscope visualizing the peritoneal cavity. There were omental adhesions towards the pelvis, most likely from a previous hysterectomy. There was a right indirect inguinal hernia identified with nothing within the hernia sac. There was no left inguinal hernia component. Under direct visualization, we then proceeded to place bilateral 5 mm ports under direct visualization after the skin and peritoneal lining were anesthetized using 0.5% Marcaine with epinephrine and a transverse skin incision made using a 15-blade. The patient was then placed in Trendelenburg position. The peritoneal lining was then opened starting laterally towards the conjoint tendon and inguinal ligament using a Sonicision. We then proceeded medially until we were at the Javad ligament. We then proceeded with inferior dissection of the peritoneal lining encompassing the entire hernia sac using blunt dissection as well as Sonicision with visualization of good hemostasis. A medium-sized 3DMax polypropylene mesh was then placed and tacked to Javad ligament medially using absorbable tacker and laterally to the conjoined tendon. The peritoneal lining was then placed over the mesh and a few tacks placed to hold this into place. Good hemostasis was observed. The 10 mm port site fascia and peritoneum were then closed under direct visualization using a Davion-Jam device and #0 Vicryl suture. The abdomen was desufflated. The remaining ports removed. All skin incisions were closed using 4-0 Monocryl running subcuticular sutures. Wounds were then cleaned and covered with Dermabond. The patient tolerated the procedure well. We will start IV and oral pain medication as well as a clear liquid diet. Once she is tolerating clears, has good pain control with oral pain medications and ambulating well, we will discharge her home. She is instructed to do no heavy lifting or exertion for the next two weeks. Job ID: [id number] DocumentID: [id number] Dictated Date: 11/26/2018 10:53:30 Entertainment & Media Correspondent Date: 11/26/2018 13:45:49 Dictated By: MONTSERRAT STAFFORD MD
--- NOTE | 2018-11-26 14:20 | Anesthesia-General Post-Op ---
General Patient Condition Mental Status/LOC: Same as Preop Cardiovascular: Satisfactory Nausea/Vomiting: Absent Respiratory: Satisfactory (albuterol tx given in SDC, IS encouraged and utlized. Pt SP02 low 90's, consistent with baseline. Dr. Mijares notified prior to d/c.) Pain: Controlled Complications: Absent Post Op Complications Complications None Follow Up Care/Instructions Patient Instructions None needed. Anesthesia/Patient Condition Patient Condition Patient is doing well, no complaints, stable vital signs, no apparent adverse anesthesia problems. No complications reported per nursing. BROOKE GONZALES CRNA Nov 26, 2018 14:20
== END 2018-11-26 13:25 | disposition home or self-care (01) ==
LOC: SDC 08:24
PROVIDERS: ATTEND Surgery
DX: K40.90 Unilateral inguinal hernia, without obstruction or gangrene, not specified as recurrent (principal); E78.00 Pure hypercholesterolemia, unspecified; K21.9 Gastro-esophageal reflux disease without esophagitis; F17.210 Nicotine dependence, cigarettes, uncomplicated; E55.9 Vitamin D deficiency, unspecified; E66.01 Morbid (severe) obesity due to excess calories; Z68.39 Body mass index [BMI] 39.0-39.9, adult; Z79.899 Other long term (current) drug therapy
CPT/HCPCS: 87081; 94664

== ENCOUNTER 2019-09-14 05:41 | Outpatient (CLI) | payer MEDICARE ==
[~2019-09-14] VITALS: Ht 162 cm; Wt 108.0 kg
== END 2019-09-14 14:06 | disposition home or self-care (01) ==
LOC: PREOP 05:41
PROVIDERS: ATTEND Surgery
DX: Z01.818 Encounter for other preprocedural examination (principal)

== ENCOUNTER 2019-09-21 08:02 | Day surgery (SDC) | payer MEDICARE ==
[~2019-09-21] VITALS: Ht 162.6 cm; Wt 108.0 kg
[2019-09-21] MEDS ORDERED: LACTATED RINGERS 1,000 ML IV ONE (08:03)
[2019-09-21] MEDS ORDERED: LACTATED RINGERS 1,000 ML IV STA (08:09)
[2019-09-21] MEDS ORDERED: PROPOFOL INJECTION 50 ML IV ONE ×2 (08:12→09:11)
[2019-09-21] MEDS ORDERED: MIDAZOLAM 2 MG/2 ML (VERSED) VIAL ONE (08:12)
[2019-09-21] MEDS ORDERED: HURRICAINE EXT TUBE (BENZOCAINE) XX PRN (08:15)
[2019-09-21 08:16] VITALS: BP 126/67
[2019-09-21] MEDS ORDERED: HURRICAINE EXT TUBE (BENZOCAINE) ONE (08:19)
[2019-09-21 09:35] VITALS: BP_SYST 119; BP_SYST 126; BP_DIAS 58; BP_DIAS 66
--- NOTE | 2019-09-21 09:38 | Progress Note-Post Operative ---
Post-Operative Progess Note Surgeon (s)/Home Health Travel Pt (s) Surgeon CARY VICTORIA DO Home Health Travel Pt: NA Pre-Operative Diagnosis Hx iof Polyps and HX of Barretts Post-Operative Diagnosis Hiatal Hernia, Barretts, Colon Polyps x 5, Antrum Ulcer Procedure & Operative Findings Date of Procedure 09/21/19 Procedure Performed/Findings EGD with Biopsies Colonoscopy with hot polypectomy x 5 Anesthesia Type Per ACID ADJUSTER Estimated Blood Loss Estimated blood loss (mL): None Specimens/Packing Specimens Removed Antrum biopsy x1 GEJ Biopsy x 1 Ascending colon biopsy x1, hepatic flexure biopsy x1 and transverse colon x 2 biopsy CARY VICTORIA DO Sep 21, 2019 09:38 POS
[2019-09-21] MEDS ORDERED: PANT40TA2 PO (09:39)
--- NOTE | 2019-09-21 09:40 | Discharge Inst-Simple/Standard ---
Discharge Inst-Standard Discharge Medications New, Converted or Re-Newed RX: Transmitted to Pharmacy Patient Instructions/Follow Up Plan of Care/Instructions/FU: 2-3 weeks Ria Activity as Tolerated: Yes Discharge Diet: Regular Diet CARY VICTORIA DO Sep 21, 2019 09:40 POS
[2019-09-21 10:00] VITALS: BP 135/77
[2019-09-21 10:05] VITALS: BP 135/77
--- NOTE | 2019-09-21 10:10 | Anesthesia-General Post-Op ---
MAC Patient Condition Mental Status/LOC: Same as Preop Cardiovascular: Satisfactory Nausea/Vomiting: Absent Respiratory: Satisfactory Pain: Controlled Complications: Absent Post Op Complications Complications None Follow Up Care/Instructions Patient Instructions None needed. Anesthesiology Discharge Order Discharge Order Patient is doing well, no complaints, stable vital signs, no apparent adverse anesthesia problems. No complications reported per nursing. MATT BOB CRNA Sep 21, 2019 10:10 POS
--- NOTE | 2019-09-21 14:03 | OPERATIVE REPORT ---
DATE OF SERVICE: 09/21/2019 PREOPERATIVE DIAGNOSES: History of polyps and history of Weller's. POSTOPERATIVE DIAGNOSES: Hiatal hernia, Weller's, colon polyps x5. SURGEON: Cary Rollins DO PROCEDURE: EGD with biopsies and colonoscopy with hot biopsy polypectomy x5. ANESTHESIA: Per BRUISE TRIMMER. ESTIMATED BLOOD LOSS: None. COMPLICATIONS: None. INDICATIONS: The patient is a 64-year-old female in need of EGD and colonoscopy for above reasons. She understands risks and benefits of procedure and wished to proceed with procedure. Consent was signed in the chart. DESCRIPTION OF PROCEDURE: The patient was taken to the endoscopy suite, placed in left lateral recumbent position. Timeout was performed. Scope was inserted in mouth, down the esophagus, stomach and into the duodenum without difficulty. There were no polyps, masses or ulcerations within the duodenum. Scope was then slowly retracted back into the stomach where there was inflammatory changes and the antral ulcer present. Biopsy of the antral ulcer was obtained. Scope was retroflexed noting a hiatal hernia, no other pathology noted. Scope was returned to its normal position, slowly withdrawn to the distal esophagus, which multiple biopsies of the distal esophagus of the GE junction were obtained due to Weller's changes. Scope was then slowly retracted back noting no other pathology. Digital rectal exam was performed. There were no palpable polyps, mass or ulcerations. The scope was inserted in the rectum, advanced all the way to the cecum with minimal difficulty. Prep was adequate with irrigation and suction. Scope was then slowly retracted back. There were no polyps, mass or ulceration of the cecum. In the ascending colon, there were 2 polyps were present, which hot biopsy polypectomy was performed and then at the hepatic flexure, there was another polyp, which hot biopsy polypectomy was performed. Scope was then continuously retracted back into the transverse colon, where one larger polyp and one small polyp was present, which hot biopsy polypectomy was performed. Scope was continuously retracted back through the remainder of the transverse, descending and sigmoid colon without noting any polyps, masses or ulcerations. Once in the rectum, difficult to retroflex; therefore, multiple insertions and retractions were made, noting no other pathology. Scope was then slowly retracted back until completely removed. The patient tolerated procedure well without any complications. She was taken to recovery room in stable condition. RECOMMENDATIONS: The patient will need repeat colonoscopy in 3 years. If she has any problems prior to that, she should be reevaluated at that time. The patient is currently on Carafate. We will start her on Protonix as well. We will have her follow up in approximately 2 to 3 weeks and see how she is doing at that time and follow up on pathology. Job ID: [id number] DocumentID: [id number] Dictated Date: 09/21/2019 09:38:56 Life Sciences Director Date: 09/21/2019 14:01:43 Dictated By: CARY ROLLINS DO
== END 2019-09-21 10:08 | disposition home or self-care (01) ==
LOC: ENDO 08:02
PROVIDERS: ATTEND Surgery
DX: D12.2 Benign neoplasm of ascending colon (principal); D12.3 Benign neoplasm of transverse colon; K22.70 Barrett's esophagus without dysplasia; K44.9 Diaphragmatic hernia without obstruction or gangrene; K25.9 Gastric ulcer, unspecified as acute or chronic, without hemorrhage or perforation; E78.5 Hyperlipidemia, unspecified; F41.9 Anxiety disorder, unspecified; F32.9 Major depressive disorder, single episode, unspecified; Z79.899 Other long term (current) drug therapy; G47.00 Insomnia, unspecified; F50.9 Eating disorder, unspecified; F17.210 Nicotine dependence, cigarettes, uncomplicated; K21.9 Gastro-esophageal reflux disease without esophagitis; E66.01 Morbid (severe) obesity due to excess calories; M06.9 Rheumatoid arthritis, unspecified; J44.9 Chronic obstructive pulmonary disease, unspecified; Z68.41 Body mass index [BMI] 40.0-44.9, adult

== ENCOUNTER → 2021-05-01 | Outpatient (CLI) | payer MEDICARE ==
[~2021-05-01] MED LIST changes: +ACHYD1T PO; -HYDR-3820 PO
--- NOTE | 2021-05-01 13:58 | Diagnostic Imaging Report ---
INDICATION: Routine screening. Comparison is made with prior mammogram 06/30/2018 and 06/16/2017. 2-D and 3-D bilateral screening mammography was performed with CAD. Scattered fibroglandular densities are identified bilaterally. No mass or malignant appearing microcalcifications are seen. Axillae are unremarkable. IMPRESSION: BI-RADS Category 1 No mammographic features suspicious for malignancy are identified. ACR BI-RADS Category 1: Negative. Result letter will be mailed to the patient. Note: At least 10% of breast cancer is not imaged by mammography. Dictated by: Dictated on workstation # [id number]
--- NOTE | 2021-05-01 16:25 | Diagnostic Imaging Report ---
INDICATION: Postmenopausal state. COMPARISON: August 20, 2011. FINDINGS: AP Spine L1-L4: [BMD (g/cm2): 1.103] [T-Score: -0.8] [Z-Score: -0.4] [BMD Previous: 1.070] [BMD % Change: 3.1] LT Hip Neck: [BMD (g/cm2): 0.912] [T-Score: -0.9] [Z-Score: -0.2] LT Hip Total: [BMD (g/cm2):0.945] [T-Score:-0.5] [Z-Score: -0.2] [BMD Previous: 1.032] [BMD % Change: -8.4] RT Hip Neck: [BMD (g/cm2):0.933] [T-Score:-0.8] [Z-Score:-0.1] RT Hip Total: [BMD (g/cm2):0.938] [T-score:-0.5] [Z-Score:-0.2] [BMD Previous:1.053] [BMD % Change:-10.9] *Indicates significant change from prior examination based on 95% confidence level. World Health Organization criteria for BMD interpretation classify patients as Normal (T-score at or above -1.0), Osteopenic (T-score between -1.0 and -2.5) or Osteoporotic (T-score at or below -2.5). LIMITATIONS AND MODIFICATION: None. IMPRESSION: 1. Normal bone mineral density. 2. No significant change in bone mineral density since prior examination. 3. See below National Osteoporosis Foundation guidelines on when to potentially initiate pharmacologic therapy. Based on the National Osteoporosis Foundation Guidelines, pharmacologic treatment should be initiated in any of the following, unless clinical conditions suggest otherwise: * Any patient with prior fragility fracture of the hip or vertebrae. A spine fracture indicates 5X risk for subsequent spine fracture and 2X risk for subsequent hip fracture. * Osteoporosis (T-score <-2.5). * Postmenopausal women and men age 50 and older with low bone mass/osteopenia (T-score between -1.0 and -2.5) by DXA and 10-year major osteoporotic fracture greater than 20% or a 10-year probability of hip fracture greater than 3%. These fracture risks are supplied above in the FRAX score, if applicable. * Clinician judgement and/or patient preferences may indicate treatment for people with 10-year fracture probabilities above or below these levels. Dictated by: Dictated on workstation # [id number]
== END ==
LOC: RAD 11:00
PROVIDERS: ATTEND Internal Medicine
DX: Z13.820 Encounter for screening for osteoporosis (principal); Z12.31 Encounter for screening mammogram for malignant neoplasm of breast; Z78.0 Asymptomatic menopausal state
CPT/HCPCS: 77063; 77067; 77080

== ENCOUNTER 2021-11-19 18:00 | Emergency (ER) | payer MEDICARE ==
[~2021-11-19] VITALS: Ht 162.6 cm; Wt 103.0 kg
[~2021-11-19 18:00] MED LIST changes: +CYCL10TA25 PO; -CYCL10TA9 PO; -DULO60CA6 PO; +DULO60CA7 PO
[2021-11-19 19:55] VITALS: BP 139/77
[2021-11-19] MEDS ORDERED: RX-CYCLOBENZAPRINE 10 MG (FLEXERIL) TAB PPK#3 PO STA (20:38)
--- NOTE | 2021-11-19 20:42 | ED Back Pain ---
General Chief Complaint: Back Problems Stated Complaint: FELL 2 DAYS AGO JUST STARTED HURTING TODAY Nursing Triage Note: PT AMB TO FT 3 W REPORTS OF FALL 2-3 DAYS AGO. PT C/O RIGHT LOWER BACK PAIN DOWN TO RIGHT KNEE THAT BEGAN THIS AM, NO PAIN UNTIL TODAY. PT DENIES HITTING HEAD DURING FALL REPORTING THAT SHE LANDED ON HER KNEES. A&OX4. History of Present Illness Date Seen by Provider: Nov 20, 2021 Time Seen by Provider: 20:05 Initial Comments 66-year-old female presents for low back and right hip and thigh pain. She states 2 to 3 days ago she fell forward when going up stairs. She landed on her hands and knees. She initially did not have any back pain but today noted that she had pain in her low back going into her right hip and thigh. She has not had back problems in the past or sciatica. She has hydrocodone at home and took 1 at approximately 1500 with mild improvement in her symptoms. She has known arthritis to her knees. Location: Lumbar Spine Timing/Duration: 2-3 Days Severity: Mild Pain/Injury Location: Back Associated Symptoms: muscle spasms; No numbness in legs/feet, No tingling in legs/feet, No sensory/motor loss; lower back pain; No loss of bladder control, No loss of bowel control Allergies and Home Medications Allergies Coded Allergies: No Known Drug Allergies (Unverified , 09/14/19) Patient Home Medication List Home Medication List Reviewed: Yes Atorvastatin Calcium (Atorvastatin Calcium) 40 Mg Tablet, 40 MG PO DAILY, (Reported) Entered as Reported by: LAVINIA AVINA on 08/24/18 09 Cholecalciferol (Vitamin D3) (Vitamin D3) 50,000 Unit Capsule, 50,000 UNIT PO WEEK, (Reported) Entered as Reported by: LAVINIA AVINA on 08/24/18 0907 Hydrocodone Bit/Acetaminophen (HYDROcodone/APAP 10/325 TABLET) 1 Each Tablet, 1 EACH PO Q6H PRN for PAIN-MODERATE, (Reported) Entered as Reported by: LAVINIA AVINA on 08/24/18 09 Pantoprazole Sodium (Protonix) 40 Mg Tablet.dr, 40 MG PO DAILY Prescribed by: CARY VICTORIA on 09/21/19 0939 Sucralfate (Carafate) 1 Gm Tablet, 1 GM PO Q6H Prescribed by: CARY VICTORIA on 08/25/18 8045 Review of Systems Constitutional: no symptoms reported, see HPI Musculoskeletal: see HPI, back pain, joint pain (Bilateral knees, chronic) All Other Systems Reviewed Negative Unless Noted: Yes Past Xvwoebe-Uuuynf-Iyyydx Hx Patient Social History Tobacco Use?: Yes Tobacco type used: Cigarettes Smoking Status: Light Tobacco Smoker Use of E-Cig and/or Vaping dev: No Substance use?: No Alcohol Use?: No Immunizations Up To Date Tetanus Booster (TDap): Unknown Influenza Vaccine Up-to-Date: Yes; Up-to-Date First/Initial COVID19 Vaccinat: NONE Second COVID19 Vaccination Mario: NONE Third COVID19 Vaccination Date: NONE COVID19 Vaccine Machining Associate: NONE Seasonal Allergies Seasonal Allergies: No Past Medical History Surgeries: Yes (BILAT knee,THROAT) Hysterectomy Respiratory: No COPD Cardiac: Yes High Cholesterol Neurological: Yes Headaches /Migraines Reproductive Disorders: No SHOULDER SAWYER History: Hysterectomy, Menopausal Sexually Transmitted Disease: No HIV/AIDS: No Genitourinary: No Gastrointestinal: Yes Gastroesophageal Reflux Musculoskeletal: Yes (PSORIATIC ARTHRITIS) Arthritis Endocrine: No HEENT: Yes (GLASSES, DENTURES) Loss of Vision: Bilateral Hearing Impairment: Denies Cancer: No Psychosocial: Yes (NOT ON MEDS NOW) Anxiety, Depression Integumentary: Yes Psoriasis Blood Disorders: No Adverse Reaction/Blood Tranf: No (N/A) Family Medical History Reviewed Nursing Family Hx Physical Exam Vital Signs Vital Signs - First Documented 11/19/21 19:55 Temp 36.5 Pulse 74 Resp 20 B/P (MAP) 139/77 (97) Pulse Ox 95 O2 Delivery Room Air Capillary Refill : Less Than 3 Seconds Height, Weight, BMI Height: 5'5.00" Weight: 238lbs. 0.0oz. [id number]; 38.00 BMI Method:Stated General Appearance: No Apparent Distress, WD/WN Neck: Full Range of Motion, Normal Inspection, Non Tender, Supple Cardiovascular: Regular Rate, Rhythm, No Edema, No Murmur, Normal Peripheral Pulses Respiratory: Chest Non Tender, Lungs Clear, Normal Breath Sounds Back: Normal Inspection; No Decreased Range of Motion; Muscle Spasm; No Vertebral Tenderness; Other (Ambulates with a steady gait, able to toe and heel walk, power 5/5 L4-S1. Negative straight leg raising sign bilaterally.) Extremity: Normal Capillary Refill, Normal Inspection, No Pedal Edema; No Swelling; Other (Bilateral knees nontender with no swelling and full range of motion. No ecchymosis or abrasions noted) Neurologic/Psychiatric: Alert, Oriented x3, No Motor/Sensory Deficits, Normal Mood/Affect Skin: Normal Color, Warm/Dry Progress/Results/Core Measures Results/Orders My Orders Orders - SHIRA ORTIZ Rx-Cyclobenzaprine Tablet (Rx-Flexeril T (11/19/21 20:38) Vital Signs/I&O 11/19/21 19:55 Temp 36.5 Pulse 74 Resp 20 B/P (MAP) 139/77 (97) Pulse Ox 95 O2 Delivery Room Air Blood Pressure Mean: 97 Progress Progress Note : Time: 20:05 Progress Note Patient seen and evaluated, offered to obtain x-ray of the lumbar spine. Patient declined the need for x-ray at this time she would like to try a muscle relaxant and will follow-up with her PCP if symptoms are not improving or worsening Departure Impression Primary Impression: Lumbar sprain Qualified Codes: S33.5XXA - Sprain of ligaments of lumbar spine, initial encounter Additional Impressions: Back pain due to injury Fall Qualified Codes: W19.XXXA - Unspecified fall, initial encounter Right sciatic nerve pain Disposition: 01 HOME, SELF-CARE Condition: Stable Departure-Patient Inst. Decision time for Depature: 20:30 Referrals: JER HENSLEY MD (PCP/Family) Primary Care Physician Patient Instructions: Low Back Pain (DC), Sciatica (DC) SHIRA ORTIZ Nov 19, 2021 20:42
== END 2021-11-19 20:49 | disposition home or self-care (01) ==
LOC: EDUNIT# 18:00 → ER 18:04
DX: S33.5XXA Sprain of ligaments of lumbar spine, initial encounter (principal); M54.31 Sciatica, right side; J44.9 Chronic obstructive pulmonary disease, unspecified; E78.00 Pure hypercholesterolemia, unspecified; K21.9 Gastro-esophageal reflux disease without esophagitis; F17.210 Nicotine dependence, cigarettes, uncomplicated; Z79.899 Other long term (current) drug therapy
CPT/HCPCS: 99283